=== PATIENT | female | born 1980 | race Caucasian/White ===

== ENCOUNTER 2017-03-05 22:41 | Emergency (ER) | payer BC ==
--- NOTE | ~2017-03-05 | ER ---
PATIENT'S NAME: ESMER [facility] AGE: 36 Y [address] ROOM: [place] [address] LOCATION: [facility] ADMIT DATE: 03/05/2017 ER/Outpatient Report DISCHARGE DATE: 03/05/2017 FAMILY PHYSICIAN: Bry Espinosa MD ATTENDING PHYSICIAN: Marilee Romano Time of Arrival: 2241 hours. Time of Evaluation: 2259 hours. IDENTIFICATION: A 36-year-old female. CHIEF COMPLAINT: Dog bite to right hand. HISTORY OF PRESENT ILLNESS: The patient states 2 of her own dogs were fighting over a bone. She went to intervene and sustained a bite wound to the thenar eminence of her right hand. She soaked it in peroxide and took one Percocet. This happened earlier tonight approximately 1-1/2 hours prior to arrival. No other injuries. Her tetanus is not current or at least she is not certain, it may have been 8 years ago. ALLERGIES: PENICILLIN CAUSES HIVES, BUT SHE TOLERATES KEFLEX OKAY. CURRENT MEDICATIONS: 1. Protonix. 2. Xolair. MEDICAL PROBLEMS: Gastroesophageal reflux disease. PRIOR SURGERIES: Fallopian tube. SOCIAL HISTORY: The patient lives in [place]. She smokes one cigarette a day. Alcohol occasional. REVIEW OF SYSTEMS: All systems reviewed and negative other than what is noted in the HPI. PHYSICAL EXAMINATION: VITAL SIGNS: Height 5 feet and 4 inches, weight 101.2 kg, blood pressure PATIENT'S NAME: ESMER MER[facility] AGE: 36 Y [address] ROOM: [place] [address] LOCATION: [facility] ADMIT DATE: 03/05/2017 ER/Outpatient Report DISCHARGE DATE: 03/05/2017 FAMILY PHYSICIAN: Bry Espinosa MD ATTENDING PHYSICIAN: Marilee Romano 147/79, pulse 66, respirations 18, temperature 96.9, and saturations 98%. GENERAL: Pleasant female, in no acute distress. EXTREMITIES: Right upper extremity is neurovascularly intact. Full range of motion. She has swelling and ecchymosis of the thenar eminence of her right hand and she has 1.5 cm abraded area. It is not really a laceration to suture, but there is some abrasion and bruising noted, no active bleeding. EMERGENCY DEPARTMENT COURSE: The area was cleansed with saline. Steri-Strips were applied per her significant other's request and a dressing was applied. The patient's tetanus was boosted and her dogs immunizations are up-to-date. IMPRESSION: Dog bite, right hand. PLAN: Wound care discussed. Keflex 500 mg t.i.d. with food. Tylenol or Advil for pain. The Keflex is for 7 days. Tetanus was boosted. Follow up with primary care as needed. The patient and her understand and agree, and all questions have been answered. MD PETER CULP/otto /[id number] d: 03/06/17 0149 t: 03/06/170, OUTPATIENT REPORT
== END 2017-03-05 23:21 | disposition disaster alternative care site (69) ==
LOC: GACC 22:41
DX: S61.451A Open bite of right hand, initial encounter (principal); K21.9 Gastro-esophageal reflux disease without esophagitis; F17.210 Nicotine dependence, cigarettes, uncomplicated; Z88.0 Allergy status to penicillin; Z98.51 Tubal ligation status; Z79.899 Other long term (current) drug therapy; W54.0XXA Bitten by dog, initial encounter